=== PATIENT | female | born 1935 | race Caucasian/White ===

== ENCOUNTER → 2017-03-18 | Outpatient (CLI) | payer OTHER ==
[~2017-03-18] MED LIST: ALBU90OI INH; ALBU90OI61 INH; AMIT50; AZOPT; Azopt10 ML LEFTEYE; BIMA.03OPS; BREO ELLIPTA 11 EACH IH; BRINOPSU; Colace100 MG PO; Duoneb 2.5-0.5 M3 ML INH; ENOX100I SQ; FLUT220OIA INH; HYDCHL50 PO; LORA.5 PO; LUMIGAN2.5 ML BOTHEYES; MECL25 PO; OXYACE5T PO; OXYBUTYNIN PO; PROM25 PO; SCOPTP TOP; TRAM50 PO; VENL75ER PO; WARF2 PO; WARF5 PO
[2017-03-20 13:01] LABS: HPV Genotype 16 Not Detected (NOTDET); HPV Genotype 18 Not Detected (NOTDET)
[2017-03-24 13:09] LABS: HPV High Risk Other Not Detected (NOTDET)
== END | disposition home or self-care (01) ==
LOC: LAB 18:09
PROVIDERS: Obstetrics & Gynecology Gynecology
DX: Z91.89 Other specified personal risk factors, not elsewhere classified (principal)
CPT/HCPCS: 87624; G0123

== ENCOUNTER 2018-10-04 11:53 | Inpatient (IN) | payer OTHER ==
[~2018-10-04] VITALS: Ht 154.9 cm; Wt 59.4 kg
[~2018-10-04 11:53] MED LIST changes: +BREO ELLIPTA 11 EACH INH; +DORZOPSO BOTHEYES; +LATA.005SO BOTHEYES; +LIDO700A20 TOP; +Percocet 5-3251 EACH PO; +Robaxin-750750 MG PO; +Ultram50 MG PO; +VENL25 PO; +Zofran4 MG PO
--- NOTE | 2018-10-05 09:19 | NUR ---
Ambulatory in Day Surgery. Surgical site prepped with 2% Chlorhexidine cloth wipe. History, Chart, Medications and Allergies reviewed before start of procedure. Lungs clear T/O to Auscultation. Patient confirms NPO status and agrees with scheduled surgery. Pre-Op teaching done. Pt verbalizes understanding. Patient reports completing Chlorhexadine shower X2 prior to admission to hospital.
--- NOTE | 2018-10-05 14:21 | NUR ---
1410 RED DRNG FROM TOP INCISION SITE SOAKED THRU DRESSING PRESSURE HELD JAARD PONCE CAME IN TOOK A LOOK AND PLACED PRESSURE DRESSING. SHE SPOKE WITH DR MUKHERJEE AND HE WANTED PRESSURE HELD FOR 5 MINUTES AND THIS WAS DONE BY KATHLEEN PONCE PT DID ASK WHAT WAS GOING ON EXPLAINED TO IA REASSURED HAD NO INCREASE IN PAIN CLEANED PT UP WARM BLANKETS IN PLACE
--- NOTE | 2018-10-05 17:07 | NUR ---
THERAPY: PT IN ROOM TO AMBULATE PATIENT. PT TO BATHROOM AND IN CHAIR. CONRAD WELL. WILL MEDICATE WITH SCHEDULED TORADOL.
--- NOTE | 2018-10-05 17:54 | NUR ---
PT HAS BEEN STABLE POST OP. PT WORKED WELL WITH THERAPY TO AMBULATE AND SIT IN CHAIR. PT CONRAD LIQUIDS. CONT FLUIDS ORDERED. PT TO START REGULAR DINNER. PT VOIDED X1. PRESSURE DRESSING TO LEFT HIP CDI. PT PAIN CONRAD WITH SCHEDULED TYLENOL AND TORADOL. PAS, TEDS AND POLAR PACK ON. SENSATION WNL POST SPINAL ANESTHESIA. SPOUSE AT BEDSIDE, ATTENTIVE. USES CALL LIGHT APPROPRIATELY NEEDED.
--- NOTE | 2018-10-06 04:19 | NUR ---
SHIFT SUMMARY: PT POD #1 FOR LEFT TOTAL HIP. PT A&O X4. BP ELEVATED T/O SHIFT. REPORTING PAIN 5/10. DENIES NEED FOR PAIN MEDICATION. PAIN MANAGED WITH TORADOL AND TYLENOL PER EMAR. AQUACEL AND PRESSURE DRESSING CDI WITH POLAR PACK IN PLACE. PT OOB SEVERAL TIMES W/FWW+1 ASSIST AND GAIT BELT. CONRAD ACTIVITY WELL. PT NAUSEATED IN BEGINNING OF SHIFT. MEDICATED WITH ZOFRAN AND PHENERGAN. PT CURRENTLY DENYING N/V. CONRAD REG DIET. SALINE LOCKED. VOIDING WELL. PLAN FOR PT TO WORK WITH PHYSCIAL THERAPY TODAY AND POSSIBLE DISCHARGE.
[2018-10-06 04:32] LABS: BASOPHILS ABSOLUTE AUTO 0.03 K/mm3 (0.00-0.23); BASOPHILS PERCENT AUTO 0 % (0-2); EOSINOPHILS ABSOLUTE AUTO 0.07 K/mm3 (0.00-0.68); EOSINOPHILS PERCENT AUTO 1 % (0-6); Hematocrit 30.5 % (33.0-51.0); Hemoglobin 9.9 g/dL (11.5-16.0); IMMATURE GRAN ABSOLUTE AUTO 0.02 K/mm3 (0.00-0.10); IMMATURE GRAN PERCENT AUTO 0 % (0-1); LYMPHOCYTES ABSOLUTE AUTO 0.88 K/mm3 (0.84-5.20); LYMPHOCYTES PERCENT AUTO 12 % (21-46); MONOCYTES ABSOLUTE AUTO 0.85 K/mm3 (0.16-1.47); MONOCYTES PERCENT AUTO 12 % (4-13); Mean Corpuscular HGB 32.5 pg (26.0-34.0); Mean Corpuscular HGB Conc 32.5 g/dL (31.5-36.5); Mean Corpuscular Volume 100 fL (80-100); Mean Platelet Volume 9.8 fL (9.1-12.4); NEUTROPHILS ABSOLUTE AUTO 5.35 K/mm3 (1.96-9.15); NEUTROPHILS PERCENT AUTO 74 % (41-73); Platelet Count 229 K/mm3 (150-400); RDW Coefficient Variation 12.6 % (11.7-14.2); Red Blood Cell Count 3.05 M/mm3 (3.80-5.20)
[2018-10-06 05:01] LABS: Anion Gap 6 mmol/L (6-16); Blood Urea Nitrogen 18 mg/dL (8-24); Bun/Creatinine Ratio 31.4 (12.0-20.0); CO2, Blood 26 mmol/L (21-32); Calcium, Blood 7.7 mg/dL (8.5-10.1); Chloride, Blood 106 mmol/L (98-108); Creatinine, Blood 0.57 mg/dL (0.40-1.00); Glomerular Filtration Rate >60 (60-); Glucose, Blood 120 mg/dL (70-99); Magnesium, Blood 1.9 mg/dL (1.6-2.4); Potassium, Blood 4.2 mmol/L (3.5-5.5); Sodium, Blood 138 mmol/L (136-145)
--- NOTE | 2018-10-06 07:21 | NUR ---
PATIENT PREFFERED TO STAY IN BED AND GET MORE REST BEFORE BREAKFAST COMES.
[2018-10-06] MEDS ORDERED: ELIQUIS2.5 MG PO (14:41)
--- NOTE | 2018-10-06 15:27 | NUR ---
DISCHARGE SUMMARY PT A&OX4, VSS, LEFT FLOOR VIA WC WITH CAGE TENDER, TO GO HOME WITH FAMILY, WITH ALL PERSONAL POSSESSIONS INCLUDING DC PACKET, 3 SMALL AQUACEL DRESSINGS AND 2 MEDIPORE DRESSINGS, 1 ELIQUIS SCRIPT, POLAR HODAN. DISCHARGE INSTRUCTIONS PROVIDED. PT REP UNDERSTANDING THOSE INSTRUCTIONS INCLUDING 2 WK FU, S/SX INFECTION AND DVT/PE, ELIQUIS FOR BLOOD THINNER, CHANGE DRESSINGS ON SUNDAYS. IV DC'D.
== END 2018-10-06 15:15 | disposition home or self-care (01) | DRG 470 ==
LOC: SURS 10-05 08:26 → PRE IP 10-05 11:00 → SURS 10-05 15:34
PROVIDERS: ADMIT Orthopaedic Surgery
PROC: 0SRB02A Replacement of Left Hip Joint with Metal on Polyethylene Synthetic Substitute, Uncemented, Open Approach (ICD-10-PCS; principal; 2018-10-05 11:00)
DX: M16.12 Unilateral primary osteoarthritis, left hip (principal); I10 Essential (primary) hypertension; F32.9 Major depressive disorder, single episode, unspecified; J45.909 Unspecified asthma, uncomplicated; M19.90 Unspecified osteoarthritis, unspecified site; G43.909 Migraine, unspecified, not intractable, without status migrainosus; Z88.5 Allergy status to narcotic agent; Z88.0 Allergy status to penicillin; Z88.8 Allergy status to other drugs, medicaments and biological substances; Z86.718 Personal history of other venous thrombosis and embolism; Z87.891 Personal history of nicotine dependence
CPT/HCPCS: 36415; 72170; 80048; 83735; 85025; 86850; 86900; 86901; 88300; 97110; 97116; 97161; 97165; 97530; 97535; C1713; C1776; J0171; J0690; J0735; J1885; J2250; J2370; J2405; J2550; J2704; J2765; J2795; J3010; J7120

== ENCOUNTER 2019-09-02 09:28 | Day surgery (SDC) | payer OTHER ==
[~2019-09-02 09:28] MED LIST changes: +ELIQUIS2.5 MG PO; +Estrace Vagin42.5 GM PV
--- NOTE | 2019-09-02 10:56 | NUR ---
1000 PATIENT ARRIVED TO THE [facility]ART [facility], BROUGHT BACK AND CHANGED INTO A GOWN FOR THE PROCEDURE. UPON HISTORY REVIEW IT WAS NOTED THAT SHE HAS FABIANA LLERGY TO IODIENE AND HAD NOT BEEN PREVIOUSLY TREATED. NOTIFIED DR. BRANTLEY AND HE WANTS THE PATIENT RESCHEDULED AND PREMEDICATED PRIOR TO THE PROCEDURE WITH PREDNISONE 50 MG 13 HOURS PRIOR, 7 HOURS PRIOR AND 1 HOUR PRIOR. I CALLED THE OFFICE AND REQUESTED THE SCRIPT BE SENT IN ELECTRONICALLY, WHICH WAS DONE. THE OFFICE WILL NOTIFY THE PATIENT OF HER RESCHEDULED APPOINTMENT NEXT WEEK. PATIENT DID STATE THAT SHE WAS HAVING 3/10 CHEST PAIN. MD AWARE AND PATIENT WAS INSTRUCTED TO GO TO THE EMERGENCY ROOMM AND/OR CALL 911 AND TAKE NITROGLYCERIN DIRECTED. PATIENT STATED THAT SHE UNDERSTOOD THESE INSTRUCTIONS AND WAS AGREEABLE TO THE RESCHEDULE OF HER CORONARY ANGIOGRAM. AT THE BEDSIDE AND ALL QUESTIONS ANSWERED. PATIENT REDRESSED AND WAS DISCHARGED HOME WITH .
[2019-09-03] MEDS ORDERED: Aspir 8181 MG PO (18:45)
[2019-09-03] MEDS ORDERED: Crestor20 MG PO (18:45)
[2019-09-03] MEDS ORDERED: LOSA25 PO (18:45)
[2019-09-03] MEDS ORDERED: BREO ELLIPTA 21 EAC1 INH (18:46)
[2019-09-03] MEDS ORDERED: IPRAT-ALBUT 0.5-3 ML NEB (18:47)
[2019-09-03] MEDS ORDERED: VENL37.5 PO (18:47)
[2019-09-03] MEDS ORDERED: LATA.005SO BOTHEYES (18:49)
[2019-09-03] MEDS ORDERED: Azopt10 ML BOTHEYES (18:49)
== END 2019-09-02 22:50 | disposition home or self-care (01) ==
LOC: MHTC 09:28
DX: R07.9 Chest pain, unspecified (principal); I10 Essential (primary) hypertension; J45.909 Unspecified asthma, uncomplicated
CPT/HCPCS: J1644; J7030

== ENCOUNTER 2021-12-29 10:21 | Emergency (ER) | payer OTHER ==
[~2021-12-29] VITALS: Ht 160 cm; Wt 60.3 kg
[~2021-12-29 10:21] MED LIST changes: +Aspir 8181 MG PO; +Azopt10 ML BOTHEYES; +BREO ELLIPTA 21 EAC1 INH; +Crestor20 MG PO; +IPRAT-ALBUT 0.5-3 ML NEB; +LOSA25 PO; +VENL37.5 PO
[2021-12-29] MEDS ORDERED: Azopt10 ML (10:41)
[2021-12-29] MEDS ORDERED: DOCU100 PO (10:43)
[2021-12-29] MEDS ORDERED: HYDCHL25 PO (10:43)
[2021-12-29] MEDS ORDERED: LATA.005SO (10:45)
[2021-12-29] MEDS ORDERED: Crestor20 MG PO (10:45)
[2021-12-29] MEDS ORDERED: LOSA50 PO (10:46)
[2021-12-29] MEDS ORDERED: GUAI200 PO (10:46)
[2021-12-29] MEDS ORDERED: NITR.4SL (10:47)
[2021-12-29 11:51] LABS: BASOPHILS ABSOLUTE AUTO 0.02 K/mm3 (0.00-0.23); BASOPHILS PERCENT AUTO 0 % (0-2); EOSINOPHILS ABSOLUTE AUTO 0.01 K/mm3 (0.00-0.68); EOSINOPHILS PERCENT AUTO 0 % (0-6); Hematocrit 34.3 % (33.0-51.0); Hemoglobin 12.2 g/dL (11.5-16.0); IMMATURE GRAN ABSOLUTE AUTO 0.04 K/mm3 (0.00-0.10); IMMATURE GRAN PERCENT AUTO 1 % (0-1); LYMPHOCYTES ABSOLUTE AUTO 0.63 K/mm3 (0.84-5.20); LYMPHOCYTES PERCENT AUTO 8 % (21-46); MONOCYTES ABSOLUTE AUTO 0.76 K/mm3 (0.16-1.47); MONOCYTES PERCENT AUTO 9 % (4-13); Mean Corpuscular HGB 33.6 pg (26.0-34.0); Mean Corpuscular HGB Conc 35.6 g/dL (31.5-36.5); Mean Corpuscular Volume 95 fL (80-100); Mean Platelet Volume 8.8 fL (9.1-12.4); NEUTROPHILS ABSOLUTE AUTO 6.91 K/mm3 (1.96-9.15); NEUTROPHILS PERCENT AUTO 83 % (41-73); Platelet Count 268 K/mm3 (150-400); RDW Coefficient Variation 12.1 % (11.7-14.2); RDW Standard Deviation 42.4 fL (35.1-46.3); Red Blood Cell Count 3.63 M/mm3 (3.80-5.20); White Blood Cell Count 8.37 K/mm3 (4.00-11.30)
[2021-12-29 12:48] LABS: Albumin, Blood 3.4 g/dL (3.4-5.0); Albumin/Globulin Ratio 1.3 (0.8-1.8); Bilirubin, Total 0.5 mg/dL (0.1-1.0); Bun/Creatinine Ratio 45.2 (12.0-20.0); Calcium, Blood 9.1 mg/dL (8.5-10.1); Creatinine, Blood 0.47 mg/dL (0.40-1.00); Globulin, Blood 2.7 g/dL (2.2-4.0); Potassium, Blood 4.1 mmol/L (3.5-5.5); Total Protein, Blood 6.1 g/dL (6.4-8.2)
[2021-12-29] MEDS ORDERED: Percocet 5-3251 EACH PO (13:35)
== END 2021-12-29 14:32 | disposition home or self-care (01) ==
LOC: ER 10:21
PROVIDERS: Student in an Organized Health Care Education/Training Program
DX: M25.552 Pain in left hip (principal); M25.551 Pain in right hip; I10 Essential (primary) hypertension; Z88.0 Allergy status to penicillin; Z88.5 Allergy status to narcotic agent; Z88.8 Allergy status to other drugs, medicaments and biological substances; Z91.09 Other allergy status, other than to drugs and biological substances; Z91.013 Allergy to seafood; Z79.82 Long term (current) use of aspirin; Z79.899 Other long term (current) drug therapy; W07.XXXA Fall from chair, initial encounter
CPT/HCPCS: 36415; 70450; 73523; 80053; 85025; 99284-25; A9270

== ENCOUNTER → 2022-02-12 | Outpatient (CLI) | payer OTHER ==
[~2022-02-12] MED LIST changes: +Azopt10 ML; +DOCU100 PO; +GUAI200 PO; +HYDCHL25 PO; +LATA.005SO; +LOSA50 PO; +NITR.4SL
[2022-02-12 12:31] LABS: Source, Urine Clean Catch
[2022-02-12 13:24] LABS: Appearance, Urine Clear (Clear); Bilirubin, Urine Neg (Neg); Blood, Urine Neg (Neg); Color, Urine Yellow (P-Yellow); Glucose Qualitative, Urine Neg (Neg); Ketones, Urine 1+ (Neg); Leukocyte Esterase, Urine Neg (Neg); Nitrite, Urine Neg (Neg); Protein, Urine Neg (Neg); Urobilinogen, Urine NORM (Normal)
== END | disposition home or self-care (01) ==
LOC: LAB SHORT 03:30
PROVIDERS: Internal Medicine
DX: N39.0 Urinary tract infection, site not specified (principal)
CPT/HCPCS: 81003

== ENCOUNTER → 2022-03-26 | Outpatient (CLI) | payer OTHER ==
[2022-03-26 14:44] LABS: Source, Urine Clean Catch
[2022-03-26 15:42] LABS: Appearance, Urine Hazy (Clear); Bilirubin, Urine Neg (Neg); Blood, Urine Neg (Neg); Color, Urine Yellow (P-Yellow); Glucose Qualitative, Urine Neg (Neg); Ketones, Urine Neg (Neg); Leukocyte Esterase, Urine Neg (Neg); Nitrite, Urine Neg (Neg); Protein, Urine 2+ (Neg); Specific Gravity, Urine 1.015 (1.003-1.022); Urobilinogen, Urine 3+ (Normal)
[2022-03-26 16:00] LABS: Calcium Oxalate Crystals Many /hpf
[2022-03-26 16:01] LABS: Bacteria Mod /hpf; Red Blood Cells, Urine 0-2 /hpf (0-2); Squamous Epithelial Cells Few /hpf (Few)
== END | disposition home or self-care (01) ==
LOC: LAB SHORT 12:00
PROVIDERS: Internal Medicine
DX: N39.0 Urinary tract infection, site not specified (principal)
CPT/HCPCS: 81001; 87086

== ENCOUNTER → 2022-10-27 | Outpatient (CLI) | payer OTHER ==
[~2022-10-27] MED LIST changes: +CEFP200 PO
[2022-10-27 19:51] LABS: Bun/Creatinine Ratio 30.7 (12.0-20.0); Creatinine, Blood 0.55 mg/dL (0.40-1.00); Potassium, Blood 3.7 mmol/L (3.5-5.5)
== END ==
LOC: LAB SHORT 12:30 → LAB 12:30
PROVIDERS: Internal Medicine
DX: I10 Essential (primary) hypertension (principal); R60.9 Edema, unspecified
CPT/HCPCS: 80048

== ENCOUNTER → 2023-01-02 | Outpatient (CLI) | payer OTHER ==
[2023-01-02 12:23] LABS: Source, Urine Clean Catch
[2023-01-02 13:14] LABS: Appearance, Urine Hazy (Clear); Bilirubin, Urine Neg (Neg); Blood, Urine Neg (Neg); Color, Urine Yellow (P-Yellow); Glucose Qualitative, Urine Neg (Neg); Ketones, Urine Neg (Neg); Leukocyte Esterase, Urine Neg (Neg); Nitrite, Urine Neg (Neg); Protein, Urine 1+ (Neg); Specific Gravity, Urine 1.015 (1.003-1.022); Urobilinogen, Urine 2+ (Normal); pH, Urine 6.5 (5.0-8.0)
[2023-01-02 14:22] LABS: Amorphous Light (0-Heavy); Bacteria Mod /hpf; Mucus Light (0-Heavy); Red Blood Cells, Urine 0-2 /hpf (0-2); Squamous Epithelial Cells Few /hpf (Few); White Blood Cells, Urine 0-2 /hpf (0-5)
== END | disposition home or self-care (01) ==
LOC: LAB 12:19 → LAB SHORT 12:19
PROVIDERS: Internal Medicine
DX: N39.0 Urinary tract infection, site not specified (principal)
CPT/HCPCS: 81001; 87086